=== PATIENT | male | born 1985 | race Caucasian/White ===

== ENCOUNTER 2021-09-30 11:17 | Outpatient (REF) | payer SELFPAY ==
[2021-09-30 11:55] LABS: MANUAL DIFF FLAG NO
[2021-09-30 11:58] LABS: Basophils Absolute Auto 0.1 X10*3/uL (0.0-0.2); Basophils Percent Auto 0.8 % (0-2); Eosinophils Absolute Auto 0.3 X10*3/uL (0.0-0.4); Eosinophils Percent Auto 4.7 % (0-4); Hematocrit 42.8 % (42.0-52.0); Hemoglobin 15.6 g/dl (14.0-18.0); Imm Gran Abs Auto 0.05 X10*3/uL (0.00-0.03); Imm Gran Pct Auto 0.8 % (0.0-0.4); Lymphocytes Absolute Auto 2.6 X10*3/uL (1.2-4.9); Lymphocytes Percent Auto 42.4 % (20-40); Mean Corpuscular HGB Conc 36.4 g/dl (31.0-36.0); Mean Corpuscular Hemoglobin 32.4 pg (27.0-33.0); Mean Platelet Volume 10.8 fL (9.4-12.4); Monocytes Absolute Auto 0.7 X10*3/uL (0.1-1.2); Neutrophils Absolute Auto 2.4 x10*3/uL (2.0-8.3); Neutrophils Percent Auto 39.3 % (45-73); Platelet Count 358 X10*3/uL (160-400); Red Blood Count 4.81 X10*6/uL (4.60-5.80); Red Cell Distribution Width 11.8 % (11.0-16.0); White Blood Count 6.2 X10*3/uL (4.8-10.8)
[2021-09-30 13:25] LABS: Ferritin 462 ng/mL (20-250)
== END 2021-09-30 11:18 | disposition home or self-care (01) ==
LOC: HO.BBR 11:17
PROVIDERS: Visit Provider Family Medicine
DX: E83.119 Hemochromatosis, unspecified (principal)
CPT/HCPCS: 36415; 82728; 85025

== ENCOUNTER 2022-03-21 14:02 | Outpatient (REF) | payer SELFPAY ==
[2022-03-21 16:17] LABS: Ferritin 534 ng/mL (20-250)
== END 2022-03-21 14:03 | disposition home or self-care (01) ==
LOC: HO.BBR 14:02
PROVIDERS: Visit Provider Nurse Practitioner Family
DX: E83.119 Hemochromatosis, unspecified (principal)
CPT/HCPCS: 36415; 82728

== ENCOUNTER 2022-05-09 14:30 | Outpatient (REF) | payer SELFPAY | END 2022-05-09 14:31 | disposition home or self-care (01) | LOC: HO.BBR 14:30 | PROVIDERS: Visit Provider Nurse Practitioner Family | DX: Z13.89 Encounter for screening for other disorder (principal) ==

== ENCOUNTER 2022-05-16 14:35 | Outpatient (REF) | payer SELFPAY | END 2022-05-16 14:36 | disposition home or self-care (01) | LOC: HO.BBR 14:35 | PROVIDERS: Visit Provider Nurse Practitioner Family | DX: Z13.89 Encounter for screening for other disorder (principal) ==

== ENCOUNTER 2022-06-06 14:15 | Outpatient (REF) | payer SELFPAY | END 2022-06-06 14:16 | disposition home or self-care (01) | LOC: HO.BBR 14:15 | PROVIDERS: Visit Provider Nurse Practitioner Family | DX: Z13.89 Encounter for screening for other disorder (principal) ==

== ENCOUNTER 2022-06-13 14:07 | Outpatient (REF) | payer SELFPAY | END 2022-06-13 14:08 | disposition home or self-care (01) | LOC: HO.BBR 14:07 | PROVIDERS: Visit Provider Nurse Practitioner Family | DX: Z13.89 Encounter for screening for other disorder (principal) ==

== ENCOUNTER 2022-06-27 14:08 | Outpatient (REF) | payer SELFPAY ==
[2022-06-27 16:43] LABS: Ferritin 36 ng/mL (20-250)
== END 2022-06-27 14:09 | disposition home or self-care (01) ==
LOC: HO.BBR 14:08
PROVIDERS: Visit Provider Nurse Practitioner Family
DX: E83.119 Hemochromatosis, unspecified (principal)
CPT/HCPCS: 36415; 82728

== ENCOUNTER 2022-07-08 13:05 | Outpatient (REF) | payer SELFPAY | END 2022-07-08 13:06 | disposition home or self-care (01) | LOC: HO.BBR 13:05 | PROVIDERS: Visit Provider Nurse Practitioner Family | DX: Z13.89 Encounter for screening for other disorder (principal) ==

== ENCOUNTER 2023-09-22 14:00 | Outpatient (REF) | payer SELFPAY ==
[2023-09-22 14:21] LABS: MANUAL DIFF FLAG NO
[2023-09-22 14:23] LABS: Basophils Percent Auto 0.7 % (0-2); Eosinophils Absolute Auto 0.2 X10*3/uL (0.0-0.4); Eosinophils Percent Auto 2.9 % (0-4); Hematocrit 43.2 % (42.0-52.0); Hemoglobin 15.8 g/dl (14.0-18.0); Imm Gran Abs Auto 0.02 X10*3/uL (0.00-0.03); Imm Gran Pct Auto 0.3 % (0.0-0.4); Lymphocytes Percent Auto 33.1 % (20-40); Mean Corpuscular HGB Conc 36.6 g/dl (31.0-36.0); Mean Corpuscular Hemoglobin 31.9 pg (27.0-33.0); Mean Corpuscular Volume 87.3 fL (80.0-98.0); Mean Platelet Volume 10.5 fL (9.4-12.4); Monocytes Absolute Auto 0.8 X10*3/uL (0.1-1.2); Monocytes Percent Auto 13.3 % (2-11); Neutrophils Percent Auto 49.7 % (45-73); Platelet Count 303 X10*3/uL (160-400); Red Blood Count 4.95 X10*6/uL (4.60-5.80); Red Cell Distribution Width 12.9 % (11.0-16.0)
[2023-09-22 14:54] LABS: Iron 264 mcg/dL (45-160); Percent Iron Saturation 80 % (15-50); Total Iron Binding Capacity 330 mcg/dL (228-428); Unsaturated Iron Binding 66 ug/dL
== END 2023-09-22 14:01 | disposition home or self-care (01) ==
LOC: HO.BBR 14:00
PROVIDERS: Visit Provider Internal Medicine Medical Oncology
DX: E83.110 Hereditary hemochromatosis (principal)
CPT/HCPCS: 36415; 83540; 85025

== ENCOUNTER 2023-12-01 15:00 | Outpatient (REF) | payer SELFPAY ==
[2023-12-01 15:16] LABS: MANUAL DIFF FLAG NO
[2023-12-01 15:17] LABS: Basophils Absolute Auto 0.1 X10*3/uL (0.0-0.2); Basophils Percent Auto 0.8 % (0-2); Eosinophils Absolute Auto 0.3 X10*3/uL (0.0-0.4); Eosinophils Percent Auto 3.5 % (0-4); Hematocrit 42.7 % (42.0-52.0); Hemoglobin 15.7 g/dl (14.0-18.0); Imm Gran Abs Auto 0.04 X10*3/uL (0.00-0.03); Imm Gran Pct Auto 0.5 % (0.0-0.4); Lymphocytes Absolute Auto 2.7 X10*3/uL (1.2-4.9); Lymphocytes Percent Auto 34.7 % (20-40); Mean Corpuscular HGB Conc 36.8 g/dl (31.0-36.0); Mean Corpuscular Hemoglobin 32.1 pg (27.0-33.0); Mean Corpuscular Volume 87.3 fL (80.0-98.0); Mean Platelet Volume 10.6 fL (9.4-12.4); Monocytes Absolute Auto 0.8 X10*3/uL (0.1-1.2); Monocytes Percent Auto 9.9 % (2-11); Neutrophils Percent Auto 50.6 % (45-73); Platelet Count 289 X10*3/uL (160-400); Red Blood Count 4.89 X10*6/uL (4.60-5.80); Red Cell Distribution Width 12.7 % (11.0-16.0); White Blood Count 7.9 X10*3/uL (4.8-10.8)
[2023-12-01 16:41] LABS: Iron 120 mcg/dL (45-160); Percent Iron Saturation 37 % (15-50); Total Iron Binding Capacity 327 mcg/dL (228-428); Unsaturated Iron Binding 207 ug/dL
== END 2023-12-01 15:01 | disposition home or self-care (01) ==
LOC: HO.BBR 15:00
PROVIDERS: Visit Provider Internal Medicine Medical Oncology
DX: E83.110 Hereditary hemochromatosis (principal)
CPT/HCPCS: 36415; 83540; 85025

== ENCOUNTER 2024-05-22 15:13 | Outpatient (REF) | payer MEDICAID, OTHER, SELFPAY ==
[2024-05-22 15:42] LABS: MANUAL DIFF FLAG NO
[2024-05-22 15:48] LABS: Basophils Absolute Auto 0.1 X10*3/uL (0.0-0.2); Basophils Percent Auto 0.6 % (0-2); Eosinophils Absolute Auto 0.2 X10*3/uL (0.0-0.4); Eosinophils Percent Auto 2.7 % (0-4); Hematocrit 45.4 % (42.0-52.0); Hemoglobin 16.6 g/dl (14.0-18.0); Imm Gran Abs Auto 0.06 X10*3/uL (0.00-0.03); Imm Gran Pct Auto 0.7 % (0.0-0.4); Lymphocytes Absolute Auto 2.3 X10*3/uL (1.2-4.9); Lymphocytes Percent Auto 27.5 % (20-40); Mean Corpuscular HGB Conc 36.6 g/dl (31.0-36.0); Mean Corpuscular Hemoglobin 32.5 pg (27.0-33.0); Mean Corpuscular Volume 88.8 fL (80.0-98.0); Mean Platelet Volume 11.1 fL (9.4-12.4); Monocytes Percent Auto 11.6 % (2-11); Neutrophils Absolute Auto 4.7 x10*3/uL (2.0-8.3); Neutrophils Percent Auto 56.9 % (45-73); Platelet Count 296 X10*3/uL (160-400); Red Blood Count 5.11 X10*6/uL (4.60-5.80); Red Cell Distribution Width 12.6 % (11.0-16.0); White Blood Count 8.2 X10*3/uL (4.8-10.8)
[2024-05-22 16:13] LABS: Iron 275 mcg/dL (45-160); Percent Iron Saturation 81 % (15-50); Total Iron Binding Capacity 338 mcg/dL (228-428); Unsaturated Iron Binding 63 ug/dL
== END 2024-05-22 15:14 | disposition home or self-care (01) ==
LOC: HO.BBR 15:13
PROVIDERS: Visit Provider Internal Medicine Medical Oncology
DX: E83.110 Hereditary hemochromatosis (principal)
CPT/HCPCS: 36415; 83540; 85025

== ENCOUNTER 2024-08-07 15:06 | Outpatient (REF) | payer MEDICAID, OTHER, SELFPAY | END 2024-08-07 15:07 | disposition home or self-care (01) | LOC: HO.BBR 15:06 | PROVIDERS: PCP Family Medicine; Visit Provider Internal Medicine Medical Oncology | DX: Z13.89 Encounter for screening for other disorder (principal) ==

== ENCOUNTER 2024-09-12 14:07 | Outpatient (REF) | payer MEDICAID, OTHER, SELFPAY ==
--- OUTSIDE RECORDS SUMMARY | 2024-09-12 14:15 | XMS_ITS | Clinical Summary ---
Author Organization [facility] Address [address] [place] [address] [place] [id number] Phone Care Team Providers Care Mri Special Procedures Technologist Name Role Phone Justino Mackenzie MD Primary Care Provider Social History Tobacco Use Types Packs/Day Years Used Date Smoking Tobacco: Never Assessed Education Answer Date Recorded Are you interested in more education? Not on emilie e 2022 Are you concerned about learning? Not on file 2022 No 2022 No 2022 Digital Access Answer Date Recorded No 07/02/2022 No 07/02/2022 No 07/02/2022 Reliable internet access at home? Not on file 07/02/2022 Device with a working camera? Not on file Sex and Gender Information Value Date Recorded Sex Assigned at Not on file Legal Sex Male 2:34 PM EST Gender Identity Not on file Sexual Orientation Not on file Last Filed Vital Signs Vital Sign Reading Time Taken Comments Blood Pressure 120/68 02/20/2018 10:00 AM EST Pulse 74 02/20/2018 10:00 AM EST Temperature - - Respiratory Rate - - Oxygen Saturation - - Inhaled Oxygen Concentration - - Weight 56.7 kg (125 lb) 02/20/2018 10:00 AM EST Height - - Body Mass Index - - Plan of Treatment Health Maintenance Due Date Last Done Comments Adult Td,Tdap Booster 1986 LIPID PANEL 1986 DEPRESSION SCREENING 1998 SMOKING Hx and SMOKELESS TOB ACCO SCREENING 06/04/1999 HEPATITIS C SCREENING 2004 HIV ONE-TIME SCREENING (18-6 5 YEARS) 2004 COVID-19 VACCINE (2023-2 5 season) 2023 HEPATITIS A VACCINES Aged Out No long er eligible based on patient's age to complete this topic HIB VACCINES Aged Out No longer eligi ble based on patient's age to complete this topic MENINGOCOCCAL VACCINES (ACWY) Aged Out No longer eligible based on patient's age to complete this topic MENINGOCOCCAL VACCINES (B) Aged Out N o longer eligible based on patient's age to complete this topic PNEUMOCOCCAL VACCINES (0-49 years) Aged Out No longer eligible based on patient's age to complete this topic Medical Devices Not on file Care Teams Mri Special Procedures Technologist Relationship Specialty Start Date End Date Justino Mackenzie MD [address] [place] [id number] PCP - General Family Medicine 09/16/21 Additional Source Comments The information contained in this document represents components of the legal health record. It is not the complete legal health record.[facility]
== END 2024-09-12 14:08 | disposition home or self-care (01) ==
LOC: HO.BBR 14:07
PROVIDERS: PCP Family Medicine; Visit Provider Internal Medicine Medical Oncology
DX: Z13.89 Encounter for screening for other disorder (principal)